=== PATIENT | male | born 1960 | race Caucasian/White ===

== ENCOUNTER → 2016-09-23 | Outpatient (CLI) | payer OTHER ==
--- NOTE | 2016-09-23 11:36 | DIAGNOSTIC IMAGING REPORT ---
PROCEDURE: CT IVP CLINICAL INDICATION: Painless hematuria. TECHNIQUE: Preliminary AP and lateral maintenance plumber views of the abdomen were obtained. Subsequently, noncontrast axial images were obtained of the entire abdomen and pelvis. 125 ml of Isovue 300 was injected intravenously, and axial images were obtained of the abdomen and pelvis with biphasic imaging of the liver and kidneys, followed by sagittal and coronal reformations. Postinjection AP maintenance plumber view of the abdomen was also obtained. COMPARISON: None. FINDINGS: NONCONTRAST ABDOMEN: There are no renal or ureteral calculi. There is some contrast in the large bowel. CONTRAST ABDOMEN: Normal enhancement and excretion of the kidneys. No evidence of renal mass or hydronephrosis. Normal ureters. Liver, gallbladder, pancreas, spleen and adrenal glands are normal. Moderate atherosclerosis of the aorta. Nonspecific bowel gas pattern. NONCONTRAST PELVIS: No bladder calcifications. CONTRAST PELVIS: There is a 2.0 x 2.1 x 1.8 cm slightly lobulated left bladder mass. Mildly enlarged prostate. No adenopathy, free fluid or inflammatory changes. Normal appendix. Grade 1 L5-S1 anterolisthesis with bilateral L5 spondylolysis. Moderate L5-S1 disc space narrowing. IMPRESSION: 1. Left bladder lobulated mass, very suspicious for neoplasm. Blood clot is less likely. Recommend cystoscopy. 2. Mildly enlarged prostate 3. Results discussed with Mary Neff. All CT scans at this facility use dose modulation, iterative reconstruction, and/or weight-based dosing when appropriate to reduce radiation dose to as low as reasonably achievable.
--- NOTE | 2016-09-23 11:36 | DIAGNOSTIC IMAGING REPORT ---
PROCEDURE: CT IVP CLINICAL INDICATION: Painless hematuria. TECHNIQUE: Preliminary AP and lateral x ray electronics wiring technician views of the abdomen were obtained. Subsequently, noncontrast axial images were obtained of the entire abdomen and pelvis. 125 ml of Isovue 300 was injected intravenously, and axial images were obtained of the abdomen and pelvis with biphasic imaging of the liver and kidneys, followed by sagittal and coronal reformations. Postinjection AP x ray electronics wiring technician view of the abdomen was also obtained. COMPARISON: None. FINDINGS: NONCONTRAST ABDOMEN: There are no renal or ureteral calculi. There is some contrast in the large bowel. CONTRAST ABDOMEN: Normal enhancement and excretion of the kidneys. No evidence of renal mass or hydronephrosis. Normal ureters. Liver, gallbladder, pancreas, spleen and adrenal glands are normal. Moderate atherosclerosis of the aorta. Nonspecific bowel gas pattern. NONCONTRAST PELVIS: No bladder calcifications. CONTRAST PELVIS: There is a 2.0 x 2.1 x 1.8 cm slightly lobulated left bladder mass. Mildly enlarged prostate. No adenopathy, free fluid or inflammatory changes. Normal appendix. Grade 1 L5-S1 anterolisthesis with bilateral L5 spondylolysis. Moderate L5-S1 disc space narrowing. IMPRESSION: 1. Left bladder lobulated mass, very suspicious for neoplasm. Blood clot is less likely. Recommend cystoscopy. 2. Mildly enlarged prostate 3. Results discussed with Mary Neff. All CT scans at this facility use dose modulation, iterative reconstruction, and/or weight-based dosing when appropriate to reduce radiation dose to as low as reasonably achievable.
== END ==
LOC: CT SRH 09:00
DX: N32.9 Bladder disorder, unspecified (principal)